=== PATIENT | female | born 1995 | race African-American/Black ===

== ENCOUNTER 2018-05-24 10:54 | Emergency (ER) | payer MEDICAID, OTHER ==
[~2018-05-24] VITALS: Ht 162.6 cm; Wt 55.0 kg
[2018-05-24 12:46] LABS: CLARITY URINE TURBID (CLEAR); COLOR URINE YELLOW (YELLOW); KETONES URINE NEGATIVE (NEGATIVE); LEUKOCYTE ESTERASE URINE 3+ (NEGATIVE); NITRITE URINE NEGATIVE (NEGATIVE); OCCULT BLOOD URINE 3+ (NEGATIVE); PH URINE 5.5 (4.5-8.0); PROTEIN URINE 2+ (NEGATIVE); UROBILINOGEN URINE 0.2 E.U./dL (0.2-1.0)
[2018-05-24] MEDS ORDERED: IBUPROFEN 600MG TABLET PO ONE (14:30)
[2018-05-24 14:32] VITALS: BP 116/72
[2018-05-27 04:17] LABS: CHLAMYDIA NUCL AC AMPLIFIC Negative (Negative); N GONORRHOEAE NAA Negative (Negative)
== END 2018-05-24 14:40 | disposition home or self-care (01) ==
LOC: ER 10:54
DX: N12 Tubulo-interstitial nephritis, not specified as acute or chronic (principal)
CPT/HCPCS: 81025; 86703; 87077; 87186; 87491; 87591; 99284

== ENCOUNTER 2019-07-12 10:22 | Observation (INO) | payer OTHER ==
[~2019-07-12] VITALS: Ht 162.6 cm; Wt 72.6 kg
[2019-07-12] MEDS ORDERED: PREN1TAB23 PO (11:19)
[2019-07-12] MEDS ORDERED: FERR325T6 PO (11:19)
[2019-07-17] MEDS ORDERED: IBUP-2030 PO (07:06)
== END 2019-07-12 15:00 | disposition home or self-care (01) ==
LOC: 8 EST LDRP 10:22
PROVIDERS: ADMIT Specialist; ATTEND Specialist
DX: O26.893 Other specified pregnancy related conditions, third trimester (principal); R10.9 Unspecified abdominal pain; Z3A.38 38 weeks gestation of pregnancy
CPT/HCPCS: 76805; 76818; 99281; G0378

== ENCOUNTER 2019-07-15 03:07 | Observation (INO) | payer OTHER ==
[~2019-07-15] VITALS: Ht 162.6 cm; Wt 72.6 kg
[~2019-07-15 03:07] MED LIST: FERR325T6 PO; PREN1TAB23 PO
[2019-07-15] MEDS ORDERED: DEXT 5%/LACTATED RINGERS 1,000 ML IV SCH (05:10)
[2019-07-15 07:14] LABS: CLARITY URINE CLEAR (CLEAR); COLOR URINE YELLOW (YELLOW); KETONES URINE NEGATIVE (NEGATIVE); LEUKOCYTE ESTERASE URINE 3+ (NEGATIVE); NITRITE URINE NEGATIVE (NEGATIVE); OCCULT BLOOD URINE NEGATIVE (NEGATIVE); PROTEIN URINE NEGATIVE (NEGATIVE); SPECIFIC GRAVITY URINE 1.007 (1.005-1.030); UROBILINOGEN URINE 0.2 E.U./dL (0.2-1.0)
[2019-07-15] MEDS ORDERED: BUTORPHANOL TARTRATE 2 MG/ML VIAL IM PRN (13:15)
[2019-07-15] MEDS ORDERED: IBUPROFEN 800MG TABLET PO PRN (16:45)
== END 2019-07-15 08:00 | disposition home or self-care (01) ==
LOC: OBSVTOIN 03:07 → INTOOBSV 03:07 → 8 EST LDRP 03:07
PROVIDERS: ADMIT Obstetrics & Gynecology; ATTEND Obstetrics & Gynecology
DX: O62.9 Abnormality of forces of labor, unspecified (principal); Z3A.38 38 weeks gestation of pregnancy
CPT/HCPCS: 81003; 87086; 99281; G0378; 96360; J7121

== ENCOUNTER 2019-07-15 12:33 | Inpatient (IN) | payer OTHER ==
[~2019-07-15] VITALS: Ht 162.6 cm; Wt 72.6 kg
[2019-07-15] MEDS ORDERED: METHYLERGONOVINE MALEATE 0.2 MG/ML IM PRN ×2 (13:15→14:00)
[2019-07-15] MEDS ORDERED: NALOXONE HCL 0.4 MG/ML 1ML VIAL IM PRN (13:15)
[2019-07-15] MEDS ORDERED: IBUPROFEN 400MG TABLET PO PRN (14:00)
[2019-07-15] MEDS ORDERED: LANOLIN OINT 7GM TUBE TOP PRN (14:00)
[2019-07-15] MEDS ORDERED: RHO(D) IMMUNE GLOBULIN 300 MCG/SYR IM PRN (14:00)
[2019-07-15 15:05] LABS: CLARITY URINE CLEAR (CLEAR); COLOR URINE YELLOW (YELLOW); KETONES URINE 1+ (NEGATIVE); LEUKOCYTE ESTERASE URINE NEGATIVE (NEGATIVE); NITRITE URINE NEGATIVE (NEGATIVE); OCCULT BLOOD URINE NEGATIVE (NEGATIVE); PH URINE 8.5 (4.5-8.0); PROTEIN URINE NEGATIVE (NEGATIVE); SPECIFIC GRAVITY URINE 1.011 (1.005-1.030)
[2019-07-15 15:21] LABS: *AMPHETAMINES SCREEN URINE NEGATIVE (NEGATIVE); *BARBITURATES SCREEN URINE NEGATIVE (NEGATIVE)
[2019-07-15 15:22] LABS: *BENZODIAZEPINES SCREEN URINE NEGATIVE (NEGATIVE); *COCAINE SCREEN URINE NEGATIVE (NEGATIVE); METHADONE URINE SCREEN NEGATIVE (NEGATIVE); OPIATES URINE SCREEN NEGATIVE (NEGATIVE); PHENCYCLIDINE URINE SCREEN NEGATIVE (NEGATIVE)
[2019-07-15 15:23] LABS: CANNABINOID URINE SCREEN NEGATIVE (NEGATIVE)
[2019-07-15 16:10] VITALS: BP 113/63
[2019-07-15 17:49] LABS: BASOPHILS % 0.5 % (0.0-2.0); EOSINOPHILS % 0.5 % (0.0-5.0); HEMOGLOBIN. 9.4 g/dL (12.0-16.0); LYMPHOCYTES % 10.3 % (20.0-50.0); MEAN CORPUSCULAR HEMOGLOBIN 21.5 pg (28.0-32.0); MEAN CORPUSCULAR VOLUME 68.7 fL (81.0-99.0); MEAN PLATELET VOLUME 9.1 fl (7.4-10.4); MONOCYTES % 7.9 % (2.0-8.0); NEUTROPHILS % 80.8 % (40.0-76.0); PLATELET 179 x1000/uL (130-400); RED BLOOD CELL COUNT 4.37 mill/uL (4.2-5.4); RED CELL DISTRIBUTION WIDTH 17.5 % (11.6-14.6)
[2019-07-15 17:58] LABS: PARTIAL THROMBOPLASTIN TIME 27.3 sec (23.4-31.0); PROTHROMBIN TIME 9.8 sec (9.6-11.0)
[2019-07-15 18:19] LABS: PLATELET ESTIMATE NORMAL
[2019-07-15 18:23] LABS: HEPATITIS B SURFACE ANTIGEN NEGATIVE
[2019-07-15] MEDS ORDERED: LIDOCAINE HCL 1% 20ML VIAL (Pyxis) INJ INFIL SCH (18:41)
[2019-07-15] MEDS ORDERED: RHO(D) IMMUNE GLOBULIN 300 MCG/SYR IM NR (18:42)
[2019-07-15] MEDS ORDERED: DEXT 5%/LACTATED RINGERS 1,000 ML IV SCH (19:00)
[2019-07-15] MEDS ORDERED: DEXT 5%/LR + PITOCIN 20UNITS/L 1,000 ML IV SCH (19:00)
[2019-07-15] MEDS ORDERED: PENICILLIN G POTASSIUM 5 MMU in DEXT 5% WATER 100 ML IV NR (19:30)
[2019-07-15 20:00] VITALS: BP 110/70
[2019-07-16] MEDS ORDERED: PENICILLIN G POTASSIUM 2.5 MMU in DEXTROSE 5% WATER 50 ML IV SCH ×2
[2019-07-16] MEDS: IBUPROFEN 800MG TABLET PO PRN ×2 (03:09→16:17)
[2019-07-16 04:10] VITALS: BP 98/62
[2019-07-16 07:09] LABS: BASOPHILS % 0.4 % (0.0-2.0); EOSINOPHILS % 2.1 % (0.0-5.0); HEMATOCRIT. 27.9 % (36.0-48.0); HEMOGLOBIN. 8.8 g/dL (12.0-16.0); MEAN CORPUSCULAR HEMOGLOBIN 21.7 pg (28.0-32.0); MEAN CORPUSCULAR VOLUME 68.6 fL (81.0-99.0); MEAN PLATELET VOLUME 8.7 fl (7.4-10.4); MONOCYTES % 8.4 % (2.0-8.0); NEUTROPHILS % 70.1 % (40.0-76.0); PLATELET 151 x1000/uL (130-400); RED BLOOD CELL COUNT 4.07 mill/uL (4.2-5.4); RED CELL DISTRIBUTION WIDTH 17.5 % (11.6-14.6)
[2019-07-16 07:30] VITALS: BP 117/83
[2019-07-16] MEDS ORDERED: PRENATAL VIT/FE FUMARATE/FA TABLET PO SCH (09:00)
[2019-07-16 15:00] VITALS: BP 103/62
[2019-07-16 20:20] VITALS: BP 100/57
[2019-07-17 05:24] VITALS: BP 95/49
[2019-07-17] MEDS ORDERED: IBUP-2030 PO (07:06)
[2019-07-17 07:30] VITALS: BP 96/56
== END 2019-07-17 11:00 | disposition home or self-care (01) | DRG 560 ==
LOC: OBSVTOIN 12:33 → OB TRIAGE 12:33 → 8EST 16:17
PROVIDERS: ADMIT Obstetrics & Gynecology; ATTEND Obstetrics & Gynecology
PROC: 10E0XZZ Delivery of Products of Conception, External Approach (ICD-10-PCS; principal; 2019-07-15)
DX: O69.81X0 Labor and delivery complicated by cord around neck, without compression, not applicable or unspecified (principal); Z37.0 Single live birth; Z3A.38 38 weeks gestation of pregnancy
CPT/HCPCS: 36415; 80305; 81003; 86592; 86703; 86762; 86850; 86900; 87340; 99281; C1893; J2540; J7060